=== PATIENT | female | born 1940 | race Caucasian/White ===

== ENCOUNTER 2020-03-24 15:42 | Inpatient (IN) | payer MEDICARE, OTHER ==
[~2020-03-24] VITALS: Ht 160 cm; Wt 74.8 kg
--- NOTE | 2020-03-24 15:42 | NUR ---
PT KAY FROM [facility] FOR GPS ADMISSION. PT IS AAOX2, NOT IN RESPIRATORY DISTRESS, V/S STABLE, KEPT RESTED AND COMFORTABLE, WILL CONTINUE TO MONITOR.
--- NOTE | 2020-03-24 15:54 | NUR ---
SEEN AND EXAMINED BY .
--- NOTE | 2020-03-24 15:58 | NUR ---
ER PHLEB AT BEDSIDE FOR BLOOD DRAW.
[2020-03-24] MEDS ORDERED: BISA10SU61 RC (16:07)
[2020-03-24] MEDS ORDERED: MULT-439 PO (16:07)
[2020-03-24] MEDS ORDERED: SENN-175 PO (16:07)
[2020-03-24] MEDS ORDERED: LOPE-195 PO (16:07)
[2020-03-24] MEDS ORDERED: ZOLP5TAB8 PO (16:07)
[2020-03-24] MEDS ORDERED: LORA-259 PO (16:07)
[2020-03-24] MEDS ORDERED: POTA20TA83 PO (16:07)
[2020-03-24] MEDS ORDERED: ACET-868 PO (16:07)
[2020-03-24] MEDS ORDERED: QUET100T PO (16:07)
[2020-03-24] MEDS ORDERED: QUET50TA PO (16:07)
[2020-03-24] MEDS ORDERED: PANT40TA2 PO (16:07)
[2020-03-24] MEDS ORDERED: ATOR10TA PO (16:07)
[2020-03-24] MEDS ORDERED: APIX5TAB4 PO (16:07)
[2020-03-24] MEDS ORDERED: BUSP5TAB3 PO (16:07)
[2020-03-24] MEDS ORDERED: CRAN425C6 PO (16:07)
[2020-03-24] MEDS ORDERED: VALS40TA12 PO (16:07)
[2020-03-24] MEDS ORDERED: DOCU-141 PO (16:07)
[2020-03-24] MEDS ORDERED: HYDR-4384 PO (16:07)
[2020-03-24] MEDS ORDERED: POLY17PO4 PO (16:07)
[2020-03-24] MEDS ORDERED: ESCI10TA PO (16:07)
[2020-03-24] MEDS ORDERED: [UNRECOGNIZED DRUG - CODE] PO (16:07)
[2020-03-24] MEDS ORDERED: ONDA4TAB5 PO (16:07)
[2020-03-24] MEDS ORDERED: ATEN50TA PO (16:07)
[2020-03-24] MEDS ORDERED: DILT120T8 PO (16:07)
[2020-03-24] MEDS ORDERED: CHOL200025 PO (16:07)
[2020-03-24 16:08] LABS: BASOPHILS % (AUTO) 0.8 % (0.0-2.0); EOSINOPHILS % (AUTO) 2.6 % (0.0-6.0); HEMATOCRIT 42 % (33-45); HEMOGLOBIN 13.4 g/dL (11.5-14.8); LYMPHOCYTES # (AUTO) 1.9 /CMM (0.8-4.8); LYMPHOCYTES % (AUTO) 33.6 % (20.0-44.0); MEAN CORPUSCULAR HGB CONC 32 g/dl (31.0-36.0); MEAN CORPUSCULAR VOLUME 86 fL (82-100); MONOCYTES # (AUTO) 0.4 /CMM (0.1-1.30); MONOCYTES % (AUTO) 7.7 % (2.0-12.0); NEUTROPHILS # (AUTO) 3.1 /CMM (1.8-8.9); NEUTROPHILS % (AUTO) 55.3 % (43.0-81.0); PLATELET COUNT (AUTO) 170 /CMM (150-450); RED BLOOD CELL COUNT(AUTO) 4.89 MIL/uL (4.0-5.2); WHITE BLOOD COUNT (AUTO) 5.5 K/uL (4.3-11.0)
[2020-03-24 16:17] LABS: CALCIUM, SERUM 9.3 mg/dL (8.5-10.1); CARBON DIOXIDE 28 mmol/L (21-32); CHLORIDE 102 mmol/L (98-107); CREATININE 1.2 mg/dL (0.6-1.3); GLUCOSE 100 mg/dL (74-106); POTASSIUM 4.4 mmol/L (3.5-5.1); SODIUM SERUM 138 mmol/L (136-145); UREA NITROGEN, BLOOD 26 mg/dL (7-18)
[2020-03-24 16:23] LABS: ACETAMINOPHEN 3 ug/ml (10-30); ALANINE AMINOTRANSFERASE 16 U/L (12-78); ALBUMIN 3.6 g/dL (3.4-5.0); ALCOHOL, BLOOD < 3 mg/dL (0-0); ALKALINE PHOSPHATASE 75 U/L (46-116); ASPARTATE AMINOTRANSFERASE 19 U/L (15-37); BILIRUBIN,DIRECT 0.1 mg/dL (0.0-0.2); BILIRUBIN,TOTAL 0.3 mg/dL (0.2-1.0); TOTAL PROTEIN, SERUM 7.2 g/dL (6.4-8.2)
[2020-03-24 16:24] LABS: SALICYLATE < 2.8 mg/dL (2.8-20.0)
--- NOTE | 2020-03-24 16:25 | NUR ---
URINE SPECIMEN COLLECTED AND SENT TO LAB.
[2020-03-24 16:37] LABS: APPEARANCE,URINE Clear (CLEAR); BILIRUBIN,URINE Negative (NEGATIVE); BLOOD, URINE Negative Ery/uL (NEGATIVE); COLOR,URINE Yellow (YELLOW); KETONES,URINE Negative (NEGATIVE); LEUKOCYTE ESTERASE ,URINE Negative (NEGATIVE); NITRITE, URINE Negative (NEGATIVE); PH,URINE 5.5 (5.0-8.0); PROTEIN,URINE Negative (NEGATIVE); UGLUCOSE Negative (NEGATIVE); UROBILINOGEN,URINE 0.2 EU/dL (0.2)
--- NOTE | 2020-03-24 18:57 | NUR ---
PINKY ETA 1 HOUR
[2020-03-24] MEDS ORDERED: ATENOLOL 50 MG TABLET PO ONE (20:00)
[2020-03-24] MEDS ORDERED: ATENOLOL 50 MG TABLET ONE (20:08)
--- NOTE | 2020-03-24 20:22 | NUR ---
REPORT GIVEN TO [facility] RN FOR CONTINUATION OF CARE.
--- NOTE | 2020-03-24 20:43 | NUR ---
PT TRANSFERED TO [facility] VIA WHEELCHAIR.
[2020-03-24] MEDS ORDERED: LEVO25TA7 PO (21:16)
[2020-03-24] MEDS ORDERED: MAG HYDROX/AL HYDROX/SIMETH 30 ML UDC PO PRN (21:30)
[2020-03-24] MEDS ORDERED: ACETAMINOPHEN 325 MG TABLET PO PRN (21:30)
[2020-03-24] MEDS ORDERED: LORAZEPAM 0.5 MG TABLET PO PRN (21:30)
[2020-03-24] MEDS ORDERED: ZOLPIDEM TARTRATE 5 MG TABLET PO PRN ×2 (21:30→22:00)
[2020-03-24] MEDS ORDERED: HOME MED MISCELLANEOUS XX SCH (22:00)
[2020-03-24] MEDS ORDERED: BISACODYL SUPP (10 MG) 10 MG/SUPP.RECT SUPP.RECT RC PRN (22:00)
[2020-03-24] MEDS ORDERED: LOPERAMIDE HCL (2 MG CAP) 2 MG CAPSULE PO PRN (22:00)
[2020-03-24] MEDS ORDERED: ONDANSETRON 4 MG TAB.RAPDIS SL PRN (22:00)
[2020-03-24] MEDS ORDERED: HYDROCODONE/APAP 5/325MG 1 EACH TABLET PO PRN (22:00)
[2020-03-24] MEDS ORDERED: BLOOD SUGAR DIAGNOSTIC 1 EACH STRIP IN ONE (22:00)
[2020-03-24] MEDS: ATORVASTATIN 10 MG TABLET PO SCH (22:47)
--- NOTE | 2020-03-24 22:49 | NUR ---
GPS RN NOTES PT REFUSED ACCU-CHEK.
[2020-03-24 23:15] VITALS: BP 145/87
[2020-03-24 23:35] VITALS: BP 160/74
[2020-03-25 00:10] LABS: APPEARANCE,URINE CLEAR (CLEAR); BILIRUBIN,URINE NEGATIVE (NEGATIVE); BLOOD, URINE NEGATIVE Ery/uL (NEGATIVE); COLOR,URINE OTHER (YELLOW); KETONES,URINE NEGATIVE (NEGATIVE); LEUKOCYTE ESTERASE ,URINE NEGATIVE (NEGATIVE); NITRITE, URINE NEGATIVE (NEGATIVE); PROTEIN,URINE NEGATIVE (NEGATIVE); UGLUCOSE NEGATIVE (NEGATIVE); UROBILINOGEN,URINE 0.2 EU/dL (0.2)
--- NOTE | 2020-03-25 01:40 | NUR ---
GPS ELECTRONIC PARTS SALESPERSON NOTES: RECEIVED FROM ER ORIGINALLY FROM [facility]. PT ARRIVED UNIT AT 2145 VIA HOSPITAL BED/STRETCHER WITH AN ER STAFF. PT IS ADMITTED ON 5150 HOLD [address]ACED 03/24/2020 @ 98478 FOR DTS/DTO. PER HOLD PT EVALUATION WAS REQUESTED BY [facility] D/T AGGRESSIVE BEHAVIOR TOWARDS STAFF AND HITTING HERSELF ON THE HEAD AND CHEST WITH A BED GAYTAN, THROWING THINGS AT STAFF AND ACCUSING STAFF OF POISONING HER AND TRYING TO GET RID OF HER. UPON FACE TO FACE ASSESSMENT PT WAS A/O X2, APPEARS DEPRESSED, HOSTILE, AGGRESSIVE, COMBATIVE, UNCOOPERATIVE, CURSING, RESTLESS, SUSPICIOUS, PARANOID, CALLING STAFF EVIL AND LYING. REFUSED TO CHANGE TO GPS GOWN, THROWING GOWN ON THE FLOOR. DISORGANIZED, LOOSE ASSOCIATIONS, FLIGHT OF IDEAS. PT IS DISPLAYING NO S/S OF OF APPARENT DISTRESS. RESPIRATION EVEN AND UNLABORED WITH EQUAL RISE AND FALL OF THE CHEST, ON ROOM AIR WITH SPO2 OF 98%. PT REFUSED TO SIGN ALL ADMISSION PAPERS, REFUSED SKIN ASSESSMENT, REFUSED MRSA AND ACCU-CHEK. PT HAS UNSTEADY GAIT AND IS HIGH FALL RISK. PT ASKED FOR SLEEP MEDICATION AND AMBIEN 5MG 1 TAB GIVEN PO ORDERED. PT HAS NO NEEDS AT THIS TIME. PT IS UNDER THE PSYCHIATRIC CARE OF DR TAYLOR, AND MEDICAL CARE OF MIRNA. PT IS ON MECHANICAL SOFT DIET D/T DYSPHAGIA.PT HAS NO BELONGINGS. PT REFUSED ORIENTATION TO UNIT. DIET, OT, PT AND SOCIAL CONSULT ORDERED. PT BED ALARM IS ON, SIDE RAILS ARE UP X2 FOR SAFETY, BED IN LOW LOCKED POSITION. CARE PLAN INITIATED, WILL CONTINUE TO MONITOR Q15 AND Q1HR FOR SAFETY, MOOD AND BEHAVIOR.
--- NOTE | 2020-03-25 03:33 | NUR ---
GPS RN NOTES: SKIN ASSESSMENT DONE, PICTURES TAKEN AND PLACED IN CHART
[2020-03-25] MEDS: HYDROCODONE/APAP 5/325MG 1 EACH TABLET PO PRN (04:38)
--- NOTE | 2020-03-25 04:39 | NUR ---
GPS-RN NOTE: C/O NECK PAIN PATIENT C/O OF NECK PAIN ON A PAIN SCALE OF 7/10. ADMINISTERED NORCO 5/325MG 1 TAB PO ORDERED. WILL CONTINUE TO MONITOR FOR THE EFFECTIVENESS OF MEDICATION.
[2020-03-25 08:00] VITALS: BP 164/84
[2020-03-25] MEDS: DOCUSATE SODIUM 100 MG CAPSULE PO SCH ×2 (08:14→16:49)
[2020-03-25] MEDS: LEVOTHYROXINE SODIUM 25 MCG TABLET PO SCH (08:15)
[2020-03-25] MEDS: ATENOLOL 50 MG TABLET PO SCH ×2 (08:15→16:50)
[2020-03-25] MEDS: MULTIVITAMINS,THERAGRAN 1 UDTAB TABLET PO SCH (08:15)
[2020-03-25] MEDS: PANTOPRAZOLE 40 MG TABLET.DR PO SCH (08:15)
[2020-03-25] MEDS: CHOLECALCIFEROL 1,000 UNIT TABLET (VIT D3) PO SCH (08:15)
[2020-03-25] MEDS: VALSARTAN 40 MG TABLET PO SCH (08:15)
[2020-03-25] MEDS: DILTIAZEM HCL CD 120 MG PO SCH (08:16)
[2020-03-25] MEDS: APIXABAN 5 MG TABLET PO SCH ×2 (08:18→16:52)
[2020-03-25] MEDS ORDERED: LORAZEPAM 1 MG TABLET PO PRN (09:00)
[2020-03-25] MEDS ORDERED: POTASSIUM CHLORIDE 20 MEQ TAB.PRT.SR PO SCH (09:00)
[2020-03-25] MEDS: GABAPENTIN 100 MG CAPSULE PO SCH ×3 (10:14→16:49)
[2020-03-25] MEDS: DULOXETINE HCL 30 MG CAPSULE.DR PO SCH (10:14)
[2020-03-25] MEDS: OXYBUTYNIN CHLORIDE 5 MG TABLET PO SCH ×2 (10:14→16:49)
[2020-03-25] MEDS: hydrOXYzine PAMOATE 25 MG CAPSULE PO PRN (10:14)
--- NOTE | 2020-03-25 10:22 | NUR ---
GPS/RN-NOTES NOTED PATIENT IRRITABLE ,ANGRY ON APPROACH,ARGUMENTATIVE AND DEMANDING BEHAVIOR. .REDIRECTED AND REASSURED PATIENT AND OFFERED VISTARIL 25MG P.O PRN ORDER. WILL CONT. MONITORING FOR SAFETY AND BEHAVIOR.
--- NOTE | 2020-03-25 11:22 | NUR ---
Person to Notify Contact: DIVINE called the pts caregiver, Loly ([phone]), who stated that she was taking care of the pt a while ago but is no longer caring for her. She stated that she is the only person involved in the pts life and that her own children refuse to be involved. She stated that she spoke to [facility] and they are recommending that the pt be transferred to a more psych facility. DIVINE stated that she will follow up with the facility.
--- NOTE | 2020-03-25 11:24 | NUR ---
Facility Contact: SW called [facility] and spoke to Maddie who stated that the pt was accepted to [facility] in [place]. She stated that they would prefer if the pt was transferred there. She stated that she will call the SW back after a meeting to discuss this further.
--- NOTE | 2020-03-25 11:30 | NUR ---
GPS/RN-NOTES PATIENT SITTING IN BED GUARDED,CALM AT THIS TIME.NO ACUTE DISTRESS NOTED.
--- NOTE | 2020-03-25 11:32 | NUR ---
Group Note: SW encouraged pt to participate in group on the topic of dealing with anxiety. Patient was agitated and yelling "I want my clothes! Give me my stuff!".
--- NOTE | 2020-03-25 12:20 | NUR ---
RT Pt refused to have EKG performed. RN informed
[2020-03-25 12:39] LABS: ALBUMIN 4.2 g/dL (3.4-5.0); BILIRUBIN,TOTAL 0.8 mg/dL (0.2-1.0); CALCIUM, SERUM 9.3 mg/dL (8.5-10.1); CREATININE 0.7 mg/dL (0.6-1.3); POTASSIUM 4.1 mmol/L (3.5-5.1); TOTAL PROTEIN, SERUM 8.1 g/dL (6.4-8.2)
[2020-03-25] MEDS: MAGNESIUM HYDROXIDE 30 ML UDC PO PRN ×2 (12:45→23:59)
--- NOTE | 2020-03-25 12:49 | NUR ---
GPS/RN-NOTES PATIENT C/O CONSTIPATION FOR 2 DAYS. MOM 30ML GIVEN PRN ORDER. WILL CONT. MONITORING FOR EFFECTIVENESS.
[2020-03-25 12:51] LABS: CHOLESTEROL 162 mg/dL (<200); HDL CHOLESTEROL 69 mg/dL (40-60); LDL 79 mg/dL (0-99); TRIGLYCERIDES 93 mg/dL (30-150)
--- NOTE | 2020-03-25 12:52 | NUR ---
Initial Discharge Plan: Pt currently resides at [facility] located at [address] [place] [address]; ([phone]). When speaking to the interstate planner, Maddie, she stated that the pt was accepted to an alternative SNF. Per pt, she would like to return to her original SNF. DIVINE will work with the pt and the MD regarding appropriate discharge planning. SW will form a safe and proper discharge.
[2020-03-25 16:00] VITALS: BP 148/97
--- NOTE | 2020-03-25 19:14 | NUR ---
GPS/RN-NOTES PATIENT REPORTED HAD X1 LARGE BM TODAY. MOM WAS EFFECTIVE. WILL ENDORSE TO INCOMING NURSE FOR BEHAVIORAL AND SAFETY MONITORING AND CONTINUITY OF CARE.
[2020-03-25 19:36] VITALS: BP 142/78
[2020-03-25] MEDS: QUETIAPINE FUMARATE 100 MG TABLET PO SCH (21:34)
[2020-03-25] MEDS: ATORVASTATIN 10 MG TABLET PO SCH (21:34)
--- NOTE | 2020-03-25 21:50 | NUR ---
GPS RN NOTE: PT HAS A COMPLIANT OF RIGHT SHOULDER PAIN REQUESTING NORCO AT THIS TIME. PT V/ STABLE. GAVE NORCO 5/325 1 TAB Q6 HOURS PO PRN ORDERED. REASSESS FOR PAIN AND WILL CONTINUE TO MONITOR PT.
--- NOTE | 2020-03-25 21:54 | NUR ---
GPS RN NOTE, PATIENT HAS A COMPLAINT OF NOT BEING ABLE TO SLEEP AT NIGHT AND IS REQUESTING AMBIEN AT THIS TIME. PAGED DR TAYLOR AND INFORMED HIM OF MY FINDINGS. DR TAYLOR ORDERED TO GIVEN AMBIEN 5 MG PO HS PRN FOR SLEEP AND SAID HE WILL TALK TO THIS PATIENT IN THE A.M. ALL ORDERS NOTED AND CARRIED OUT WILL CONTINUE TO MONITOR THIS PATIENT WITH THE HELP OF STAFF.
--- NOTE | 2020-03-25 23:59 | NUR ---
GPS RN NOTE, PATIENT HAS A COMPLAINT OF FEELING CONSTIPATED AND IS REQUESTING MILK OF MAGNESIA AT THIS TIME. PATIENT VITAL SIGNS ARE STABLE. GAVE MILK OF MAGNESIA 30 ML PO Q12HR PRN ORDERED. WILL REASSESS AND I WILL CONTINUE TO MONITOR THIS PATIENT WITH THE HELP OF STAFF.
[2020-03-26] MEDS: HYDROCODONE/APAP 5/325MG 1 EACH TABLET PO PRN (06:56)
[2020-03-26] MEDS: LEVOTHYROXINE SODIUM 25 MCG TABLET PO SCH (06:59)
[2020-03-26 08:00] VITALS: BP 162/94
[2020-03-26] MEDS: PANTOPRAZOLE 40 MG TABLET.DR PO SCH (08:25)
[2020-03-26] MEDS: VALSARTAN 40 MG TABLET PO SCH (08:27)
[2020-03-26] MEDS: OXYBUTYNIN CHLORIDE 5 MG TABLET PO SCH ×2 (08:27→16:14)
[2020-03-26] MEDS: GABAPENTIN 100 MG CAPSULE PO SCH ×3 (08:27→16:14)
[2020-03-26] MEDS: DOCUSATE SODIUM 100 MG CAPSULE PO SCH ×2 (08:27→16:14)
[2020-03-26] MEDS: ATENOLOL 50 MG TABLET PO SCH ×2 (08:27→16:15)
[2020-03-26] MEDS: DULOXETINE HCL 30 MG CAPSULE.DR PO SCH (08:27)
[2020-03-26] MEDS: CHOLECALCIFEROL 1,000 UNIT TABLET (VIT D3) PO SCH (08:28)
[2020-03-26] MEDS: DILTIAZEM HCL CD 120 MG PO SCH (08:28)
[2020-03-26] MEDS: MULTIVITAMINS,THERAGRAN 1 UDTAB TABLET PO SCH (08:28)
[2020-03-26] MEDS: APIXABAN 5 MG TABLET PO SCH ×2 (08:29→16:53)
[2020-03-26] MEDS: POTASSIUM CHLORIDE 20 MEQ POWDER PACKET PO SCH (08:35)
[2020-03-26 16:00] VITALS: BP 153/98
[2020-03-26] MEDS: hydrOXYzine PAMOATE 25 MG CAPSULE PO PRN (20:07)
[2020-03-26 20:18] VITALS: BP 163/99
[2020-03-26] MEDS: QUETIAPINE FUMARATE 100 MG TABLET PO SCH (21:07)
[2020-03-26] MEDS: ATORVASTATIN 10 MG TABLET PO SCH (21:07)
[2020-03-27] MEDS: LEVOTHYROXINE SODIUM 25 MCG TABLET PO SCH (05:54)
[2020-03-27] MEDS: HYDROCODONE/APAP 5/325MG 1 EACH TABLET PO PRN ×2 (05:54→20:23)
[2020-03-27] MEDS: PANTOPRAZOLE 40 MG TABLET.DR PO SCH (07:59)
[2020-03-27] MEDS: DILTIAZEM HCL CD 120 MG PO SCH (08:05)
[2020-03-27] MEDS: DOCUSATE SODIUM 100 MG CAPSULE PO SCH ×2 (08:05→17:11)
[2020-03-27] MEDS: MULTIVITAMINS,THERAGRAN 1 UDTAB TABLET PO SCH (08:05)
[2020-03-27] MEDS: POTASSIUM CHLORIDE 20 MEQ POWDER PACKET PO SCH (08:05)
[2020-03-27] MEDS: GABAPENTIN 100 MG CAPSULE PO SCH ×3 (08:05→17:11)
[2020-03-27] MEDS: OXYBUTYNIN CHLORIDE 5 MG TABLET PO SCH ×2 (08:06→17:11)
[2020-03-27] MEDS: VALSARTAN 40 MG TABLET PO SCH (08:06)
[2020-03-27] MEDS: DULOXETINE HCL 30 MG CAPSULE.DR PO SCH (08:06)
[2020-03-27] MEDS: CHOLECALCIFEROL 1,000 UNIT TABLET (VIT D3) PO SCH (08:06)
[2020-03-27] MEDS: APIXABAN 5 MG TABLET PO SCH ×2 (08:09→17:13)
[2020-03-27] MEDS: ATENOLOL 50 MG TABLET PO SCH ×2 (08:14→17:12)
[2020-03-27 08:30] VITALS: BP 110/69
--- NOTE | 2020-03-27 11:34 | NUR ---
GPS/RN-NOTES PER DR. TAYLOR ,PATIENT REPORTED TO HIM THAT SHE HAD BLOOD ON HER STOOL EARLIER. ALMOND PASTE MOLDER WENT AND VERIFIED WITH THE PATIENT, PATIENT STATED" I WENT # 2 EARLIER AND HAD BLOOD ON MY STOOL". DR. SALAS MADE AWARE WITH T.O ORDER OF CBC STAT AND STOOL COLLECTION FOR OB. NOTED AND CARRIED OUT.INSTRUCTED PATIENT TO NOTIFY THE ALMOND PASTE MOLDER WHEN GOING TO THE BATHROOM AGAIN SO TO COLLECT A STOOL SAMPLE PER MD ORDER. PATIENT VERBALIZED UNDERSTANDING.
[2020-03-27 12:04] LABS: BASOPHILS % (AUTO) 0.7 % (0.0-2.0); EOSINOPHILS % (AUTO) 1.4 % (0.0-6.0); HEMATOCRIT 44 % (33-45); HEMOGLOBIN 14.5 g/dL (11.5-14.8); LYMPHOCYTES # (AUTO) 1.4 /CMM (0.8-4.8); LYMPHOCYTES % (AUTO) 22.6 % (20.0-44.0); MEAN CORPUSCULAR HGB CONC 33 g/dl (31.0-36.0); MEAN CORPUSCULAR VOLUME 84 fL (82-100); MONOCYTES # (AUTO) 0.5 /CMM (0.1-1.30); MONOCYTES % (AUTO) 8.3 % (2.0-12.0); NEUTROPHILS # (AUTO) 4.2 /CMM (1.8-8.9); PLATELET COUNT (AUTO) 192 /CMM (150-450); RED BLOOD CELL COUNT(AUTO) 5.26 MIL/uL (4.0-5.2); WHITE BLOOD COUNT (AUTO) 6.3 K/uL (4.3-11.0)
[2020-03-27 16:00] VITALS: BP 160/77
--- NOTE | 2020-03-27 16:14 | NUR ---
GPS/RN-NOTES DR. SALAS MADE AWARE OF THE CBC RESULTS. PER MD WILL CONT. ELIQUIS BID ,PATIENT IS NOT ACTIVELY BLEEDING.
--- NOTE | 2020-03-27 18:47 | NUR ---
GPS/RN-NOTES 14 DAY HOLD COPY WAS REVIEWED TO THE PATIENT, PATIENT REFUSED TO TAKE THE COPY SHE GETS ANGRY AND ARGUMENTATIVE. STATED" I 'M DON'T WANT TO STAY HERE ,YOU JUST TAKING MY MONEY". LET ME GO BACK TO MY PLACE. REASSURED AND REDIRECTED PATIENT.
--- NOTE | 2020-03-27 18:56 | NUR ---
GPS/RN-NOTES PATIENT SITTING IN BED AWAKE,ALERT ,CALM,GUARDED NO ACUTE DISTRESS NOTED. NO STOOL COLLECTED TODAY DUE TO NO BM AFTER THIS MORNING. PATIENT AWARE OF THE NEED STOOL SPECIMEN.PATIENT ABLE TO AMBULATE TO THE BATHROOM USING WALKER. WILL ENDORSE TO INCOMING NURSE FOR COLLECTION AND CONTINUITY OF CARE.
[2020-03-27 19:50] VITALS: BP 162/91
[2020-03-27 20:00] VITALS: BP 162/91
--- NOTE | 2020-03-27 20:26 | NUR ---
GPS RN NOTE: PAIN PATIENT C/O LEFT SHOULDER PAIN 01/28 & ONLY WANTED TO TAKE NORCO AT THIS TIME. PRN NORCO GIVEN ORDERED. WILL CONTINUE TO MONITOR FOR ANY CHANGES.
--- NOTE | 2020-03-27 20:30 | NUR ---
GPS/RN-NOTES 14 DAY HOLD COPY WAS GIVEN AGAIN TO THE PATIENT, PATIENT REFUSED TO TAKE THE COPY SHE GETS ANGRY AND ARGUMENTATIVE & THREW THE FORMS ON THE FLOOR. STATED" THIS IS ALL A LIE, YOU ALL ARE JUST TAKING MY MONEY". LET ME GO BACK. REASSURED AND REDIRECTED PATIENT.
--- NOTE | 2020-03-27 20:50 | NUR ---
GPS RN NOTE: AGITATION PATIENT WALKED OUT OF HER ROOM WITH HER WALKER, VERY DEMANDING, HYPERVERBAL USING BAD WORDS TOWARDS STAFF & SHE WALKED BACK TO HER ROOM SHE THREW HER WALKER ON THE FLOOR, CHARGE NURSE & RN REDIRECTED THE PATIENT, SHE WAS AGITATED FOR A WHILE BUT THEN DID CALM DOWN. PATIENT IS FORGETFUL & EASILY AGITATED. KEEPS ASKING SAME QUESTIONS OVER & OVER. WILL CONTINUE TO REDIRECT THE PATIENT & WILL MONITOR CLOSELY FOR ANY CHANGES.
[2020-03-27 21:15] VITALS: BP 142/86
[2020-03-27] MEDS: QUETIAPINE FUMARATE 100 MG TABLET PO SCH (21:23)
[2020-03-27] MEDS: ATORVASTATIN 10 MG TABLET PO SCH (21:23)
[2020-03-27] MEDS: ZOLPIDEM TARTRATE 5 MG TABLET PO PRN (22:32)
--- NOTE | 2020-03-27 22:35 | NUR ---
GPS RN NOTE: INSOMNIA PATIENT STATED SHE WAS UNABLE TO SLEEP & REQUESTED TO GET AMBIEN AT THIS TIME. PRN AMBIEN 5 MG 1 TAB PO GIVEN ORDERED. WILL CONTINUE TO MONITOR FOR EFFECTIVENESS.
[2020-03-28] MEDS: LEVOTHYROXINE SODIUM 25 MCG TABLET PO SCH (06:24)
--- NOTE | 2020-03-28 06:34 | NUR ---
GPS RN NOTE PATIENT SLEPT WELL AFTER TAKING AMBIEN, WOKE UP, KEEP ASKING SAME QUESTIONS ABOUT MEDICATIONS OVER & OVER, ARGUMENTATIVE, VERY NEEDY, DEMANDING SAYING," WHY CAN'T YOU CLEAN MY BODY THE WAY YOU CLEANED OTHER PATIENT IN MY ROOM ?" PATIENT IS AMBULATORY WITH WALKER, STEADY ON HER OWN PACE, ABLE TO HELP WITH HER ADL CARE BUT WANTS TO BE DEPENDENT FOR ADL CARE. EXPLAINED TO THE PATIENT THAT IT IS GOOD TO BE INDEPENDENT BUT PATIENT STARTS ARGUING, GETS ANXIOUS/RESTLESS & REPEATING SAME STATEMENT OVER & OVER. GAVE HER SOME SPACE TO RELAX & CALM DOWN. CONTINUING TO MONITOR FOR SAFETY, MOOD & BEHAVIOR.
[2020-03-28] MEDS: PANTOPRAZOLE 40 MG TABLET.DR PO SCH (06:39)
--- NOTE | 2020-03-28 06:40 | NUR ---
GPS RN NOTE PATIENT WANTED HER PROTONIX RIGHT AWAY. PROTONIX GIVEN ORDERED.
[2020-03-28 08:00] VITALS: BP_SYST 133; BP_SYST 135; BP_DIAS 64; BP_DIAS 78
--- NOTE | 2020-03-28 08:17 | NUR ---
Dr. Villa in the unit and ordered Anusol cream BID prn.
[2020-03-28] MEDS ORDERED: HYDROCORTISONE CR 30 GM TUBE RC PRN (08:20)
[2020-03-28] MEDS: GABAPENTIN 100 MG CAPSULE PO SCH ×3 (08:21→16:21)
[2020-03-28] MEDS: MULTIVITAMINS,THERAGRAN 1 UDTAB TABLET PO SCH (08:21)
[2020-03-28] MEDS: DULOXETINE HCL 30 MG CAPSULE.DR PO SCH (08:21)
[2020-03-28] MEDS: VALSARTAN 40 MG TABLET PO SCH (08:21)
[2020-03-28] MEDS: DOCUSATE SODIUM 100 MG CAPSULE PO SCH ×2 (08:22→16:21)
[2020-03-28] MEDS: OXYBUTYNIN CHLORIDE 5 MG TABLET PO SCH ×2 (08:22→16:21)
[2020-03-28] MEDS: CHOLECALCIFEROL 1,000 UNIT TABLET (VIT D3) PO SCH (08:22)
[2020-03-28] MEDS: POTASSIUM CHLORIDE 20 MEQ POWDER PACKET PO SCH (08:22)
[2020-03-28] MEDS: DILTIAZEM HCL CD 120 MG PO SCH (08:25)
[2020-03-28] MEDS: APIXABAN 5 MG TABLET PO SCH ×2 (08:26→16:22)
[2020-03-28] MEDS: ATENOLOL 50 MG TABLET PO SCH ×2 (08:32→16:21)
[2020-03-28 10:50] VITALS: BP 151/96
[2020-03-28] MEDS: HYDROCODONE/APAP 5/325MG 1 EACH TABLET PO PRN ×2 (10:53→19:16)
--- NOTE | 2020-03-28 12:10 | NUR ---
Pt. refused for labs.
[2020-03-28 16:00] VITALS: BP 135/86
[2020-03-28 18:44] LABS: APPEARANCE,URINE CLEAR (CLEAR); BILIRUBIN,URINE NEGATIVE (NEGATIVE); BLOOD, URINE NEGATIVE Ery/uL (NEGATIVE); COLOR,URINE YELLOW (YELLOW); KETONES,URINE NEGATIVE (NEGATIVE); LEUKOCYTE ESTERASE ,URINE TRACE (NEGATIVE); NITRITE, URINE NEGATIVE (NEGATIVE); PROTEIN,URINE NEGATIVE (NEGATIVE); UGLUCOSE NEGATIVE (NEGATIVE); UROBILINOGEN,URINE 0.2 EU/dL (0.2)
[2020-03-28 18:51] LABS: BACTERIA,URINE Rare /HPF (None Seen); RBC,URINE 0-2 /HPF (0-2); SQUAMOUS EPITHELIAL CELL,UR 0-2 /HPF (None Seen)
[2020-03-28 18:52] LABS: MUCUS,URINE Rare /LPF (None Seen)
--- NOTE | 2020-03-28 19:19 | NUR ---
GPS RN NOTE: PAIN PATIENT C/O LEFT SHOULDER PAIN 01/28, REQUESTED TO TAKE NORCO, PRN NORCO 5/325 MG 1 TAB PO GIVEN. WILL REASSESS FOR EFFECTIVENESS.
[2020-03-28 20:00] VITALS: BP 115/71
--- NOTE | 2020-03-28 20:30 | NUR ---
GPS RN NOTE: AGITATION PATIENT IS VERY DEMANDING, WANTS THINGS TO BE DONE RIGHT AWAY, EASILY AGITATED/IRRITABLE, COMPLAINING ABOUT OTHER PATIENT BEING TALKING TO HERSELF & PATIENT STATED, " I DON'T FEEL GOOD WHEN OTHER PATIENT TALKING TO HERSELF, I WANT TO GO HOME." PATIENT IS HYPERVERBAL, ARGUMENTATIVE TOWARDS STAFF & HER ROOM MATE, INSISTING ON THINGS TO BE DONE RIGHT AWAY, WANTS TO GO TO ANOTHER ROOM. PATIENT WAS REDIRECTED, REASSURED TO LOOK FOR ANOTHER ROOM AVAILABILITY, SET LIMITS WITH THE PATIENT BEHAVIOR. PATIENT WAS THEN MOVED TO ROOM 215-1 SAFELY. WILL CONTINUE TO MONITOR FOR ANY CHANGES.
[2020-03-28 20:33] VITALS: BP 115/72
--- NOTE | 2020-03-28 21:24 | NUR ---
GPS RN NOTE UA RESULTED BUT URINE CULTURE IS PENDING YET. AARTI BRADLEY MADE AWARE ABOUT THE UA REPORT & AARTI ASKED TO WAIT FOR URINE CULTURE RESULTS TO RULE OUT ANY DIAGNOSIS. PATIENT IS FORGETFUL & CONFUSED, EASILY AGITATED, REDIRECTABLE AT THIS TIME. WILL CONTINUE TO MONITOR FOR ANY CHANGES.
[2020-03-28] MEDS: QUETIAPINE FUMARATE 100 MG TABLET PO SCH (21:37)
[2020-03-28] MEDS: ATORVASTATIN 10 MG TABLET PO SCH (21:37)
[2020-03-28] MEDS: ZOLPIDEM TARTRATE 5 MG TABLET PO PRN (23:52)
--- NOTE | 2020-03-28 23:53 | NUR ---
GPS RN NOTE: INSOMNIA PATIENT STATED SHE IS UNABLE TO SLEEP & REQUESTED TO GET AMBIEN. PRN AMBIEN 5 MG 1 TAB PO GIVEN ORDERED. WILL MONITOR FOR EFFECTIVENESS.
--- NOTE | 2020-03-29 03:06 | NUR ---
GPS RN NOTE PATIENT IS SLEEPING AT THIS TIME. CALM & RELAXED.
[2020-03-29] MEDS: LEVOTHYROXINE SODIUM 25 MCG TABLET PO SCH (07:00)
--- NOTE | 2020-03-29 07:18 | NUR ---
GPS RN NOTE SYNTHROID & PANTOPRAZOLE WAS TAKEN OUT OF OMNICELL BUT PATIENT REFUSED TO TAKE BOTH MEDICINES, STATED, " I DON'T NEED IT, I DON'T TAKE THESE MEDS AT ALL." REMINDED THE PATIENT THAT SHE ASKED FOR THESE 2 MEDICINES ON HER OWN YESTERDAY SAYING THAT SHE HAS BEEN TAKING THESE MEDS FOR A LONG TIME & MEDS WERE GIVEN YESTERDAY. DESPITE OF EXPLANATIONS, PT. STRONGLY KEEP REPEATING THE SAME REASON OVER & OVER & REFUSED TO TAKE SYNTHROID & PANTOPRAZOLE. MEDS WERE RETURNED TO THE OMNICELL. CHARGE NURSE MADE AWARE.
[2020-03-29] MEDS: PANTOPRAZOLE 40 MG TABLET.DR PO SCH (07:30)
[2020-03-29 08:00] VITALS: BP 158/79
[2020-03-29] MEDS: ATENOLOL 50 MG TABLET PO SCH ×2 (08:07→16:22)
[2020-03-29] MEDS: VALSARTAN 40 MG TABLET PO SCH (08:08)
[2020-03-29] MEDS: DOCUSATE SODIUM 100 MG CAPSULE PO SCH ×2 (08:08→16:20)
[2020-03-29] MEDS: CHOLECALCIFEROL 1,000 UNIT TABLET (VIT D3) PO SCH (08:09)
[2020-03-29] MEDS: OXYBUTYNIN CHLORIDE 5 MG TABLET PO SCH ×2 (08:09→16:21)
[2020-03-29] MEDS: HYDROCODONE/APAP 5/325MG 1 EACH TABLET PO PRN ×2 (08:10→16:22)
[2020-03-29] MEDS: POTASSIUM CHLORIDE 20 MEQ POWDER PACKET PO SCH (08:12)
[2020-03-29] MEDS: DULOXETINE HCL 30 MG CAPSULE.DR PO SCH (08:12)
[2020-03-29] MEDS: GABAPENTIN 100 MG CAPSULE PO SCH ×3 (08:21→16:21)
[2020-03-29] MEDS: DILTIAZEM HCL CD 120 MG PO SCH (08:21)
[2020-03-29] MEDS: APIXABAN 5 MG TABLET PO SCH ×2 (08:21→16:43)
[2020-03-29] MEDS: MULTIVITAMINS,THERAGRAN 1 UDTAB TABLET PO SCH (08:22)
[2020-03-29 15:53] VITALS: BP 154/87
[2020-03-29 15:56] LABS: BASOPHILS % (AUTO) 0.8 % (0.0-2.0); EOSINOPHILS % (AUTO) 2.8 % (0.0-6.0); HEMATOCRIT 43 % (33-45); HEMOGLOBIN 14.1 g/dL (11.5-14.8); LYMPHOCYTES # (AUTO) 1.3 /CMM (0.8-4.8); MEAN CORPUSCULAR HGB CONC 33 g/dl (31.0-36.0); MEAN CORPUSCULAR VOLUME 84 fL (82-100); MONOCYTES # (AUTO) 0.6 /CMM (0.1-1.30); MONOCYTES % (AUTO) 10.8 % (2.0-12.0); NEUTROPHILS # (AUTO) 3.1 /CMM (1.8-8.9); NEUTROPHILS % (AUTO) 60.6 % (43.0-81.0); PLATELET COUNT (AUTO) 183 /CMM (150-450); RED BLOOD CELL COUNT(AUTO) 5.14 MIL/uL (4.0-5.2); WHITE BLOOD COUNT (AUTO) 5.2 K/uL (4.3-11.0)
[2020-03-29 16:23] LABS: ALBUMIN 3.7 g/dL (3.4-5.0); BILIRUBIN,TOTAL 0.5 mg/dL (0.2-1.0); CALCIUM, SERUM 9.4 mg/dL (8.5-10.1); CREATININE 0.8 mg/dL (0.6-1.3); POTASSIUM 4.7 mmol/L (3.5-5.1); TOTAL PROTEIN, SERUM 7.5 g/dL (6.4-8.2)
[2020-03-29 20:00] VITALS: BP 128/72
[2020-03-29] MEDS: ATORVASTATIN 10 MG TABLET PO SCH (21:25)
[2020-03-29] MEDS: QUETIAPINE FUMARATE 100 MG TABLET PO SCH (21:25)
--- NOTE | 2020-03-29 21:53 | NUR ---
RN NOTES: PT.REFUSED WEEKLY SKIN REASSEMENT AND PICTURES, ENCOURAGED X3 EXPLINED RISKS AND BENEFITS STRONGLY REFUSED, PER PT. MY SKIN IS OK. WILL CONTINUITY WITH CARE.
--- NOTE | 2020-03-29 22:01 | NUR ---
RN NOTES: PT.REFUSED WEEKLY SKIN REASSEMENT AND PICTURES, ENCOURAGED X3 EXPLINED RISKS AND BENEFITS STRONGLY REFUSED, PER PT. MY SKIN IS OK. PT. BEHAVIOR UNCOOPERTIVE , AGGRESSIVE, DISORGNIZED , WILL CONTINUITY WITH CARE.
[2020-03-29] MEDS: ZOLPIDEM TARTRATE 5 MG TABLET PO PRN (22:27)
--- NOTE | 2020-03-29 22:28 | NUR ---
GPS RN NOTE: INSOMNIA PATIENT C/O UNABLE TO SLEEP & REQUESTED TO GET AMBIEN. PRN AMBIEN 5 MG PO GIVEN ORDERED. WILL MONITOR FOR EFFECTIVENESS.
[2020-03-30] MEDS: HYDROCODONE/APAP 5/325MG 1 EACH TABLET PO PRN ×3 (05:59→16:25)
--- NOTE | 2020-03-30 06:00 | NUR ---
GPS RN NOTE: PAIN PATIENT C/O LEFT SHOULDER PAIN 01/28, REQUESTED TO TAKE NORCO, PRN NORCO 5/325 MG 1 TAB PO GIVEN. WILL REASSESS FOR EFFECTIVENESS.
[2020-03-30] MEDS: LEVOTHYROXINE SODIUM 25 MCG TABLET PO SCH (07:00)
--- NOTE | 2020-03-30 07:03 | NUR ---
GPS RN OPENING NOTES RECEIVED PT.RESTING IN HER ROOM, AWAKE, ALERT AND ORIENTED ,ANXIOUS CONFUSED, FORGETFUL, BLUNTED AFFECT, PARANOID,AGITATED, EASILY IRRITABLE, THOUGHT PROCESS DISORGANIZED,MANIPULATIVE,ARGUMENTATIVE, DEMANDING, NEEDY, DISORIENTED, LOOSE ASSOCIATIONS, NO S/S OF DISTRESS. ENVIRONMENTAL SAFETY CHECKS DONE.BED IN LOW LOCKED POSITION , CALL BRYAN WITHIN REACH. SAFETY MAINTAIN AT ALL TIMES. BED IN LOWEST LOCKED POSITION, SIDE RAILS UPX2, CALL LIGHT WITHIN REACH. WILL CONTINUE TO MONITOR Q15M, PRN AND PER PROTOCOL FOR SAFETY AND BEHAVIOR.
[2020-03-30] MEDS: PANTOPRAZOLE 40 MG TABLET.DR PO SCH (07:24)
--- NOTE | 2020-03-30 07:26 | NUR ---
GPS RN NOTE: REFUSED MEDS PT. REFUSED SYNTHROID & PANTOPRAZOLE WAS TAKEN OUT OF OMNICELL BUT PATIENT REFUSED TO TAKE BOTH MEDICINES, STATED, " I DON'T NEED IT, I DON'T TAKE THESE MEDS AT ALL." PT. STRONGLY KEEP REPEATING THE SAME REASON OVER & OVER & REFUSED TO TAKE SYNTHROID & PANTOPRAZOLE. MEDS WERE RETURNED TO THE OMNICELL. CHARGE NURSE MADE AWARE.
[2020-03-30 08:00] VITALS: BP 163/85
[2020-03-30] MEDS: GABAPENTIN 100 MG CAPSULE PO SCH ×3 (09:53→17:14)
[2020-03-30] MEDS: OXYBUTYNIN CHLORIDE 5 MG TABLET PO SCH ×2 (09:53→16:18)
[2020-03-30] MEDS: DILTIAZEM HCL CD 120 MG PO SCH (09:55)
[2020-03-30] MEDS: DOCUSATE SODIUM 100 MG CAPSULE PO SCH ×2 (09:55→16:18)
[2020-03-30] MEDS: VALSARTAN 40 MG TABLET PO SCH (09:56)
[2020-03-30] MEDS: DULOXETINE HCL 30 MG CAPSULE.DR PO SCH (09:56)
[2020-03-30] MEDS: CHOLECALCIFEROL 1,000 UNIT TABLET (VIT D3) PO SCH (09:57)
[2020-03-30] MEDS: ATENOLOL 50 MG TABLET PO SCH ×2 (09:58→16:19)
[2020-03-30] MEDS: POTASSIUM CHLORIDE 20 MEQ POWDER PACKET PO SCH (09:58)
[2020-03-30] MEDS: ACETAMINOPHEN 325 MG TABLET PO PRN (09:58)
--- NOTE | 2020-03-30 10:00 | NUR ---
PATIENT COMPLAINED OF THROBBING PAIN IN BOTH ARMS OF 3/10. PER PATIENT REQUEST, TYLENOL 650MG PO Q4HRS PRN WAS ADMINISTERED AT THIS TIME. WILL CONTINUE TO MONITOR
[2020-03-30] MEDS: MULTIVITAMINS,THERAGRAN 1 UDTAB TABLET PO SCH (10:08)
[2020-03-30] MEDS: APIXABAN 5 MG TABLET PO SCH ×2 (10:13→16:21)
--- NOTE | 2020-03-30 13:38 | NUR ---
Facility Contact: SW called [facility] and spoke to Maddie who stated that [facility] ([phone], ) is the facility that is willing to accept the pt and that the SW can speak to Aura. DIVINE stated that she will call and work with this facility.
--- NOTE | 2020-03-30 14:14 | NUR ---
Facility Contact: SW called [facility] ([phone], ) and left a voicemail that stated that the SW would like to discuss this pts admission to this facility.
--- NOTE | 2020-03-30 14:30 | NUR ---
PATIENT COMPLAINING OF VAGINAL PAIN. DR NI, MADE AWARE. DR NI ASSESSED PATIENT WITH NURSE. ORDERS RECEIVED. WILL ADMINISTER ORDERS ORDERED AND CONTINUE TO MONITOR.
[2020-03-30 16:00] VITALS: BP 153/115
[2020-03-30] MEDS: PHENAZOPYRIDINE HCL 200 MG TABLET PO PRN (16:17)
--- NOTE | 2020-03-30 16:17 | NUR ---
PT C/O OF THROBBING URINARY PAIN OF 3/10. PYRIDIUM 100MG PO TID PRN ADMINISTERED PER ORDER. WILL CONTINUE TO MONITOR
[2020-03-30 16:32] VITALS: BP 162/95
--- NOTE | 2020-03-30 16:32 | NUR ---
PT C/O OF LEFT/RIGHT HAND ACHING AND GUARDING PAIN OF 7/10. VS TAKEN, BP 162/95 HR 86, RR 18, T 97.9 SPO2 97%. NORCO 5-325MG PO Q6HR PRN ADMINISTERED AT THIS TIME. WILL CONTINUE TO MONITOR
--- NOTE | 2020-03-30 19:04 | NUR ---
GPS RN CLOSING NOTES PT SITTING AT BEDSIDE AT THIS TIME. PT REMAINED STABLE THROUGHOUT SHIFT. ALL CARE, NEEDS, TREATMENT AND MEDICATIONS ADMINISTERED ANTICIPATED PER ORDER. PT KEPT CLEAN AND DRY. SAFETY MAINTAIN AT ALL TIMES. BED IN LOWEST LOCKED POSITION, SIDE RAILS UPX2, CALL LIGHT WITHIN REACH. WILL CONTINUE TO MONITOR Q15M, PRN AND PER PROTOCOL FOR SAFETY AND BEHAVIOR Addendum: 03/30/20 at 1909 by LEON BUNN RN GPS RN CLOSING NOTES PT SITTING AT BEDSIDE AT THIS TIME. PT REMAINED STABLE THROUGHOUT SHIFT. ALL CARE, NEEDS, TREATMENT AND MEDICATIONS ADMINISTERED ANTICIPATED PER ORDER. PT KEPT CLEAN AND DRY. SAFETY MAINTAIN AT ALL TIMES. BED IN LOWEST LOCKED POSITION, SIDE RAILS UPX2, CALL LIGHT WITHIN REACH. WILL ENDORSE TO DIRECTOR OF ADULT EPILEPSY NURSE FOR ANDREW
[2020-03-30 19:38] VITALS: BP 149/93
[2020-03-30] MEDS: hydrOXYzine PAMOATE 25 MG CAPSULE PO PRN (20:54)
[2020-03-30] MEDS: CEPHALEXIN MONOHYDRATE 500 MG CAPSULE PO SCH (20:55)
[2020-03-30] MEDS: ATORVASTATIN 10 MG TABLET PO SCH (21:42)
[2020-03-30] MEDS: QUETIAPINE FUMARATE 100 MG TABLET PO SCH (21:42)
[2020-03-30] MEDS: SENNOSIDES 8.6 MG TABLET PO SCH (21:42)
[2020-03-30] MEDS: ZOLPIDEM TARTRATE 5 MG TABLET PO PRN (22:33)
--- NOTE | 2020-03-31 06:02 | NUR ---
GPS RN CLOSING NOTES PT AWAKE AND LAYING ON BED. ALL CARE, NEEDS, TREATMENT AND MEDICATIONS ADMINISTERED ANTICIPATED PER ORDER. PT HAD PRN MEDS VISTARIL 25MG, 1 TAB PO AND AMBIEN 5MG 1 TAB PO THIS SHIFT. PT KEPT CLEAN AND DRY. SAFETY PRECAUTION TAKEN. BED IN LOWEST LOCKED POSITION, SIDE RAILS UPX2, CALL LIGHT WITHIN REACH. WILL CONTINUE TO MONITOR [id number] AND Q1HR PER GPS PROTOCOL FOR SAFETY, MOOD AND BEHAVIOR
[2020-03-31] MEDS: LEVOTHYROXINE SODIUM 25 MCG TABLET PO SCH (07:12)
[2020-03-31] MEDS: PANTOPRAZOLE 40 MG TABLET.DR PO SCH (07:48)
[2020-03-31 08:00] VITALS: BP 160/87
[2020-03-31] MEDS: POTASSIUM CHLORIDE 20 MEQ POWDER PACKET PO SCH (08:26)
[2020-03-31] MEDS: GABAPENTIN 100 MG CAPSULE PO SCH ×3 (08:26→17:38)
[2020-03-31] MEDS: DULOXETINE HCL 30 MG CAPSULE.DR PO SCH (08:26)
[2020-03-31] MEDS: MULTIVITAMINS,THERAGRAN 1 UDTAB TABLET PO SCH (08:26)
[2020-03-31] MEDS: DOCUSATE SODIUM 100 MG CAPSULE PO SCH ×2 (08:26→17:38)
[2020-03-31] MEDS: CEPHALEXIN MONOHYDRATE 500 MG CAPSULE PO SCH ×2 (08:27→20:33)
[2020-03-31] MEDS: CHOLECALCIFEROL 1,000 UNIT TABLET (VIT D3) PO SCH (08:27)
[2020-03-31] MEDS: OXYBUTYNIN CHLORIDE 5 MG TABLET PO SCH ×2 (08:27→17:39)
[2020-03-31] MEDS: VALSARTAN 40 MG TABLET PO SCH (08:27)
[2020-03-31] MEDS: DILTIAZEM HCL CD 120 MG PO SCH (08:28)
[2020-03-31] MEDS: ATENOLOL 50 MG TABLET PO SCH ×2 (08:28→17:38)
[2020-03-31] MEDS: APIXABAN 5 MG TABLET PO SCH ×2 (08:29→17:39)
[2020-03-31] MEDS: PHENAZOPYRIDINE HCL 200 MG TABLET PO PRN (13:09)
[2020-03-31] MEDS: HYDROCODONE/APAP 5/325MG 1 EACH TABLET PO PRN (13:10)
--- NOTE | 2020-03-31 13:10 | NUR ---
RN NOTE: PAIN PT C/O 8/10 LEFT SHOULDER PAIN AND GENERALIZED PELVIC PAIN. MEDICATED WITH NORCO AND PYRIDIUM PO PRN
--- NOTE | 2020-03-31 13:19 | NUR ---
SNF Referral: DIVINE faxed a referral to [facility] with attn to Adali to the fax number: [phone].
[2020-03-31 16:00] VITALS: BP 161/83
[2020-03-31 20:06] VITALS: BP 146/66
[2020-03-31] MEDS: SENNOSIDES 8.6 MG TABLET PO SCH (21:22)
--- NOTE | 2020-03-31 21:22 | NUR ---
GPS RN NOTES: REFUSED SENOKOT PT REFUSED SENOKOT 17.2 MG PO ORDERED DUE. PT STATED, "DION ALREADY USED THE RESTROOM TODAY. I DON'T WANT TO KEEP GOING AT NIGHT." EXPLAIN RISKS AND BENEFITS. PT REFUSED X 3. CONTINUE TO MONITOR.
[2020-03-31] MEDS: QUETIAPINE FUMARATE 100 MG TABLET PO SCH (21:30)
[2020-03-31] MEDS: ATORVASTATIN 10 MG TABLET PO SCH (21:30)
[2020-03-31 22:31] VITALS: BP 134/74
[2020-03-31] MEDS: ZOLPIDEM TARTRATE 5 MG TABLET PO PRN (22:33)
--- NOTE | 2020-03-31 22:39 | NUR ---
GPS RN NOTES: INSOMNIA PT C/O UNABLE TO SLEEP. PT REQUESTED AMBIEN. CHECKED VITALS WNL. NO RESP DISTRESS. BREATHING EVEN AND UNLABORED. NO PAIN AT THIS TIME. OFFERED AMBIEN 5 MG PO PRN ORDERED. PT AGREED AND TOLERATED MEDICATION WELL. CONTINUE TO MONITOR
[2020-04-01 04:15] VITALS: BP 126/70
[2020-04-01] MEDS: PHENAZOPYRIDINE HCL 200 MG TABLET PO PRN (04:21)
--- NOTE | 2020-04-01 04:24 | NUR ---
GPS RN NOTES: URINARY PAIN UPON DOING ROUNDS, PT C/O OF URINARY PAIN. VITALS CHECKED WNL. NO SOB. NO RESP DISTRESS. BREATHING EVEN AND UNLABORED. OFFERED PYRIDIUM PRN ORDERED. PT AGREED AND TOLERATED MEDICATION WELL. CONTINUE TO MONITOR.
[2020-04-01] MEDS: LEVOTHYROXINE SODIUM 25 MCG TABLET PO SCH (06:15)
[2020-04-01 08:00] VITALS: BP 149/83
[2020-04-01] MEDS: OXYBUTYNIN CHLORIDE 5 MG TABLET PO SCH ×2 (08:16→18:01)
[2020-04-01] MEDS: ATENOLOL 50 MG TABLET PO SCH ×2 (08:16→18:00)
[2020-04-01] MEDS: POTASSIUM CHLORIDE 20 MEQ POWDER PACKET PO SCH (08:16)
[2020-04-01] MEDS: DOCUSATE SODIUM 100 MG CAPSULE PO SCH ×2 (08:16→17:59)
[2020-04-01] MEDS: DULOXETINE HCL 30 MG CAPSULE.DR PO SCH (08:16)
[2020-04-01] MEDS: CEPHALEXIN MONOHYDRATE 500 MG CAPSULE PO SCH ×2 (08:16→21:20)
[2020-04-01] MEDS: PANTOPRAZOLE 40 MG TABLET.DR PO SCH (08:16)
[2020-04-01] MEDS: GABAPENTIN 100 MG CAPSULE PO SCH ×4 (08:17→18:01)
[2020-04-01] MEDS: DILTIAZEM HCL CD 120 MG PO SCH (08:17)
[2020-04-01] MEDS: MULTIVITAMINS,THERAGRAN 1 UDTAB TABLET PO SCH (08:17)
[2020-04-01] MEDS: CHOLECALCIFEROL 1,000 UNIT TABLET (VIT D3) PO SCH (08:17)
[2020-04-01] MEDS: VALSARTAN 40 MG TABLET PO SCH (08:18)
[2020-04-01] MEDS: APIXABAN 5 MG TABLET PO SCH ×2 (08:18→18:02)
--- NOTE | 2020-04-01 14:38 | NUR ---
SNF Referral: DIVINE faxed a referral to the following two facilities: [facility] with attn to THOMAS and Crispin to the fax number: [phone] [facility] to the fax number: [phone].
--- NOTE | 2020-04-01 14:50 | NUR ---
NURSE MARCIN ENDORSED PT. TO ME. ALERT AND ORIENTED,VERY NEEDY.MED COMPLIANT.
[2020-04-01 16:00] VITALS: BP 149/89
[2020-04-01] MEDS: HYDROCODONE/APAP 5/325MG 1 EACH TABLET PO PRN (18:14)
[2020-04-01 19:57] VITALS: BP 126/62
[2020-04-01] MEDS: ATORVASTATIN 10 MG TABLET PO SCH (21:19)
[2020-04-01] MEDS: QUETIAPINE FUMARATE 100 MG TABLET PO SCH (21:20)
[2020-04-01] MEDS: SENNOSIDES 8.6 MG TABLET PO SCH (21:20)
[2020-04-01] MEDS: ZOLPIDEM TARTRATE 5 MG TABLET PO PRN (22:54)
--- NOTE | 2020-04-01 22:54 | NUR ---
GPS-RN NOTE: INSOMNIA PATIENT C/O INABILITY TO SLEEP. ADMINISTERED AMBIEN 5MG PO ORDERED. WILL CONTINUE TO MONITOR.
[2020-04-02 08:00] VITALS: BP 135/81
[2020-04-02] MEDS: CEPHALEXIN MONOHYDRATE 500 MG CAPSULE PO SCH ×2 (08:00→20:08)
[2020-04-02] MEDS: GABAPENTIN 100 MG CAPSULE PO SCH ×3 (08:01→16:58)
[2020-04-02] MEDS: CHOLECALCIFEROL 1,000 UNIT TABLET (VIT D3) PO SCH (08:01)
[2020-04-02] MEDS: MULTIVITAMINS,THERAGRAN 1 UDTAB TABLET PO SCH (08:01)
[2020-04-02] MEDS: LEVOTHYROXINE SODIUM 25 MCG TABLET PO SCH (08:02)
[2020-04-02] MEDS: POTASSIUM CHLORIDE 20 MEQ POWDER PACKET PO SCH (08:02)
[2020-04-02] MEDS: VALSARTAN 40 MG TABLET PO SCH (08:02)
[2020-04-02] MEDS: DULOXETINE HCL 30 MG CAPSULE.DR PO SCH (08:02)
[2020-04-02] MEDS: DILTIAZEM HCL CD 120 MG PO SCH (08:02)
[2020-04-02] MEDS: PANTOPRAZOLE 40 MG TABLET.DR PO SCH (08:03)
[2020-04-02] MEDS: APIXABAN 5 MG TABLET PO SCH ×2 (08:03→16:59)
[2020-04-02] MEDS: DOCUSATE SODIUM 100 MG CAPSULE PO SCH ×2 (08:03→16:58)
[2020-04-02] MEDS: ATENOLOL 50 MG TABLET PO SCH ×2 (08:03→16:59)
[2020-04-02] MEDS: OXYBUTYNIN CHLORIDE 5 MG TABLET PO SCH ×2 (08:04→16:59)
[2020-04-02] MEDS: HYDROCODONE/APAP 5/325MG 1 EACH TABLET PO PRN (08:39)
--- NOTE | 2020-04-02 10:44 | NUR ---
SNF REFERRAL FOLLOW UPS: DIVINE contacted [facility] Address: [address] [place], [place] and spoke with Adali pharmacy benefits coordinator who stated pts referral was declined. DIVINE contacted [facility] Address: [address] [place] and spoke with Crispin, regional company hazmat tanker drivercenter medical and lab director who stated the facility is currently no accepted pts. DIVINE also contacted [facility] Address: [address] [place] [address] and spoke with Nissa pharmacy benefits coordinator who stated pt has been accepted, SW informed her pt will be discharged on Monday04/04/20.
[2020-04-02 16:00] VITALS: BP 146/84
[2020-04-02 19:36] VITALS: BP 149/77
[2020-04-02] MEDS: ATORVASTATIN 10 MG TABLET PO SCH (21:37)
[2020-04-02] MEDS: QUETIAPINE FUMARATE 100 MG TABLET PO SCH (21:37)
[2020-04-02] MEDS: SENNOSIDES 8.6 MG TABLET PO SCH (21:38)
[2020-04-02] MEDS: ZOLPIDEM TARTRATE 5 MG TABLET PO PRN (22:16)
--- NOTE | 2020-04-02 22:18 | NUR ---
GPS RN NOTE: INSOMNIA PT COMPLAINED OF HAVING INSOMNIA STATED "I CANT SLEEP WITHOUT TAKING AN AMBIEN, I NEED AN AMBIEN NOW". ADMINISTERED PRN AMBIEN, WILL REASSESS AND CONTINUE TO MONITOR Q15MIN FOR SAFETY AND BEHAVIOR.
--- NOTE | 2020-04-03 01:18 | NUR ---
GPS RN NOTE: NON ADMIN REASON DID NOT ADMINISTER 2[address], PT STATED "IM NOT CONSTIPATED, I KEEP USING THE BATHROOM I DON'T WANT THAT". WILL CONTINUE TO MONITOR Q15 MIN FOR SAFETY AND BEHAVIOR.
[2020-04-03] MEDS: ACETAMINOPHEN 325 MG TABLET PO PRN ×2 (05:38→19:42)
--- NOTE | 2020-04-03 05:41 | NUR ---
GPS RN NOTE: PAIN PT STATED "I AM HAVING LEG PAIN AND BURNING PAIN WHEN I PEE, I NEED SOMETHING WHAT CAN I TAKE" ADMINISTERED PRN TYLENOL @ 0538, REEDUCATED PT ABOUT THE UTI SHE HAS AND TAKING THE FULL COURSE ANTIBIOTICS WILL HELP WITH THE BURNING SENSATION WHEN URINATING. WILL REASSESS AND CONTINUE TO MONITOR Q15MIN FOR SAFETY AND BEHAVIOR.
[2020-04-03] MEDS: LEVOTHYROXINE SODIUM 25 MCG TABLET PO SCH (07:00)
[2020-04-03 08:00] VITALS: BP 148/99
[2020-04-03] MEDS: DOCUSATE SODIUM 100 MG CAPSULE PO SCH ×2 (08:57→16:32)
[2020-04-03] MEDS: CHOLECALCIFEROL 1,000 UNIT TABLET (VIT D3) PO SCH (08:59)
[2020-04-03] MEDS: PANTOPRAZOLE 40 MG TABLET.DR PO SCH (09:00)
[2020-04-03] MEDS: DULOXETINE HCL 30 MG CAPSULE.DR PO SCH ×3 (09:00→10:29)
[2020-04-03] MEDS: OXYBUTYNIN CHLORIDE 5 MG TABLET PO SCH ×2 (09:00→16:32)
[2020-04-03] MEDS: VALSARTAN 40 MG TABLET PO SCH (09:00)
[2020-04-03] MEDS: DILTIAZEM HCL CD 120 MG PO SCH ×2 (09:00→09:07)
[2020-04-03] MEDS: POTASSIUM CHLORIDE 20 MEQ POWDER PACKET PO SCH (09:01)
[2020-04-03] MEDS: APIXABAN 5 MG TABLET PO SCH ×2 (09:01→16:39)
[2020-04-03] MEDS: MULTIVITAMINS,THERAGRAN 1 UDTAB TABLET PO SCH (09:01)
[2020-04-03] MEDS: CEPHALEXIN MONOHYDRATE 500 MG CAPSULE PO SCH ×2 (09:01→21:00)
[2020-04-03] MEDS: GABAPENTIN 100 MG CAPSULE PO SCH ×4 (09:03→16:34)
[2020-04-03] MEDS: ATENOLOL 50 MG TABLET PO SCH ×2 (09:04→16:39)
[2020-04-03] MEDS: HYDROCODONE/APAP 5/325MG 1 EACH TABLET PO PRN ×2 (09:10→17:15)
--- NOTE | 2020-04-03 09:10 | NUR ---
rn notes administered narco 5/325 mg po prn for generalized pain. v/s taken bp 148/99, p-72, patient selective with scheduled medication. continued monitoring.
--- NOTE | 2020-04-03 10:31 | NUR ---
rn notes administered Symbolta 60 mg po at this time, after MD Belcher spoke with the patient.
--- NOTE | 2020-04-03 12:22 | NUR ---
RN NOTES PATIENT REFUSED 1300 NEURONTIN 200 MG PO . PATIENT STATE TO MUCH MEDICATION "I AM CHOKING".
[2020-04-03 16:00] VITALS: BP 144/88
--- NOTE | 2020-04-03 17:15 | NUR ---
rn notes administered narco 5/325 mg po prn for generalized pain 02/27 per patient request, v/s taken bp 144/88, p-91, r-20. continued monitoring.
--- NOTE | 2020-04-03 19:51 | NUR ---
RN NOTES: COMPLAINED OF MILD PAIN, REQUESTING FOR HER NORCO EXPLAINED TO HER THIS IS NOT YET YOUR TIME FOR NORCO, OFFERED TYLENOL AND SHE AGREED TO TAKE IT BP-115/72 NM-66.
[2020-04-03 20:00] VITALS: BP 115/72
[2020-04-03 20:23] VITALS: BP 115/72
[2020-04-03] MEDS: ATORVASTATIN 10 MG TABLET PO SCH (21:00)
[2020-04-03] MEDS: QUETIAPINE FUMARATE 100 MG TABLET PO SCH (21:00)
[2020-04-03] MEDS: SENNOSIDES 8.6 MG TABLET PO SCH (21:00)
[2020-04-03] MEDS: ZOLPIDEM TARTRATE 5 MG TABLET PO PRN (21:14)
--- NOTE | 2020-04-03 21:14 | NUR ---
RN NOTES: -PREPARED HER EVENING MEDIATION KEFLEX,SEROQUEL, SENOKOT AND LIPITOR, EXPLAINED TO HER THAT SHE NEEDS TO TAKE HER MEDICATION, EXPLAINED ACTION ONE BY ONE, SUDDENLY SHE WAS UPSET SHE WANTS HER AMBIEN, RN EXPLAINED TO HER WE CANNOT GIVE THEM TOGETHER, BECAUSE IT WILL MAKE HER BP GO DOWN RIGHT NOW HER BP-115/72, SHE STARTED TO SHOUT AND SAY BAD WORDS TO THE NURSE. SHE SAID "I DONT WANT TO TAKE THAT BUNCH OF MEDICATION I JUST WANT MY AMBIEN, I DONT WANT SEROQUEL". -RN WAS WITNESSED BY THE CHARGE NURSE DURING HER TIME OF AGITATION, SEROQUEL ALONG WITH HER OTHER MEDICATION NOT GIVEN, SHE REFUSED. -SHE ONLY TOOK THE AMBIEN PRN FOR SLEEP. -AFTER SHE GOT THE MEDICATION SHE APOLOGIZE AND SAY SORRY
--- NOTE | 2020-04-03 21:31 | NUR ---
RN NOTES: RETURNED KEFLEX,LIPITOR AND SENOKOT IN THE PYXIS, UNABLE TO RETURN BACK SEROQUEL, PATIENT REFUSED TO TAKE BUT IT WAS ALREADY OPEN.DISCARD IN PILL WASTER.
--- NOTE | 2020-04-03 22:37 | NUR ---
RN NOTES: AROUND 2200 AFTER SHE HAD HER SLEEPING PILL, SHE PROCEED TO BED AND SLEEP.
--- NOTE | 2020-04-04 02:41 | NUR ---
VALENTINA NOTES: AWAKE AMBULATE GOING TO THE BATHROOM USING HER FWW, SHE WENT BACK TO BED. Addendum: 04/04/20 at 0301 by MCKENZIE NIETO RN ADDED NOTES: ABLE TO GO BACK TO SLEEP, FALL PRECAUTION OBSERVED.
[2020-04-04] MEDS: LEVOTHYROXINE SODIUM 25 MCG TABLET PO SCH (06:19)
--- NOTE | 2020-04-04 06:54 | NUR ---
RN NOTES: AWAKE, SHE TOOK HER LEVOTHYROXINE, RIGHT NOW COMPLAINING OF BURNING SENSATION UPON URINATION, EXPLAINED TO HER THAT SHE HAS UTI AND SHE REFUSED TO TAKE HER ANTIBIOTIC, YESTERDAY AND THIS MORNING, SHE NEEDS TO COMPLY IN HER MEDICATION.ENCOURAGE TO TAKE MORE WATER TOLERATED AND GIVEN CRANBERRY JUICE,FOR DISCHARGE TODAY IN [facility]IA [facility] AT 1100.ENDORSED FOR CONTINUITY OF CARE.
[2020-04-04 08:00] VITALS: BP 151/92
[2020-04-04] MEDS: POTASSIUM CHLORIDE 20 MEQ POWDER PACKET PO SCH (08:07)
[2020-04-04] MEDS: CHOLECALCIFEROL 1,000 UNIT TABLET (VIT D3) PO SCH (08:07)
[2020-04-04] MEDS: VALSARTAN 40 MG TABLET PO SCH (08:07)
[2020-04-04] MEDS: OXYBUTYNIN CHLORIDE 5 MG TABLET PO SCH (08:07)
[2020-04-04] MEDS: CEPHALEXIN MONOHYDRATE 500 MG CAPSULE PO SCH (08:07)
[2020-04-04] MEDS: PANTOPRAZOLE 40 MG TABLET.DR PO SCH (08:07)
[2020-04-04] MEDS: DOCUSATE SODIUM 100 MG CAPSULE PO SCH (08:08)
[2020-04-04] MEDS: GABAPENTIN 100 MG CAPSULE PO SCH (08:08)
[2020-04-04] MEDS: APIXABAN 5 MG TABLET PO SCH (08:09)
[2020-04-04] MEDS: ATENOLOL 50 MG TABLET PO SCH (08:11)
[2020-04-04] MEDS: DULOXETINE HCL 30 MG CAPSULE.DR PO SCH (08:11)
[2020-04-04] MEDS: MULTIVITAMINS,THERAGRAN 1 UDTAB TABLET PO SCH (08:19)
[2020-04-04 08:20] VITALS: BP 151/92
[2020-04-04] MEDS: DILTIAZEM HCL CD 120 MG PO SCH (08:20)
[2020-04-04] MEDS: HYDROCODONE/APAP 5/325MG 1 EACH TABLET PO PRN (08:30)
--- NOTE | 2020-04-04 08:49 | NUR ---
Dr. Belcher gave an order to D/C hold and D[facility]C to [facility] and to follow up with the psychiatrist Dr. Belcher at [address] [facility] [address], [place] [address] with the tel# [phone] and to follow with the line maintainer section Dr. Israel at [address] [facility] [address] [address] with the tel# [phone]. Psychiatrist ordered to continue same meds including prn. Called the facility and spoke to Briseyda the asphalt paving supervisor and said that they are accepting the pt. today. Per pt. she doesn't have anybody to notify for the discharge.
--- NOTE | 2020-04-04 11:30 | NUR ---
GPS/RN PT DISCHARGED TO [facility]. VSS NO ACUTE DISTRESS NO SI OR HI AT THE TIME OF DISCHARGE. REPORT GIVEN TO LION MONTGOMERY AT FACILITY. EXIT CARE AND PRESCRIPTIONS GIVEN ANDUNDERSTOOD. PROPERTY RETURNED. PT REFUSED TO SIGN D/C PAPERWORK AND TO LET RN TO TAKE THE PICTURES. LEFT VIA AMBULANCE.
== END 2020-04-04 11:30 | DRG 885 ==
LOC: ER 15:46 → GPS 19:50
PROVIDERS: ADMIT Psychiatry & Neurology Psychiatry; ATTEND Registered Nurse
DX: F33.3 Major depressive disorder, recurrent, severe with psychotic symptoms (principal); I11.0 Hypertensive heart disease with heart failure; N39.0 Urinary tract infection, site not specified; F29 Unspecified psychosis not due to a substance or known physiological condition; E78.5 Hyperlipidemia, unspecified; E11.9 Type 2 diabetes mellitus without complications; I50.9 Heart failure, unspecified; I25.10 Atherosclerotic heart disease of native coronary artery without angina pectoris; J44.9 Chronic obstructive pulmonary disease, unspecified; K21.9 Gastro-esophageal reflux disease without esophagitis; Z79.01 Long term (current) use of anticoagulants; Z87.440 Personal history of urinary (tract) infections; Z91.81 History of falling; Z79.899 Other long term (current) drug therapy; F41.9 Anxiety disorder, unspecified; F11.10 Opioid abuse, uncomplicated; Z81.8 Family history of other mental and behavioral disorders; Z88.0 Allergy status to penicillin; K64.9 Unspecified hemorrhoids
CPT/HCPCS: 36415; 80048-TC; 80053-TC; 80061-TC; 80076-TC; 80305; 81000-TC; 85025-TC; 87081-TC; 87086-TC; 97116-TC; 97530-TC; G0480; Q0177

== ENCOUNTER 2020-04-07 14:57 | Emergency (ER) | payer MEDICARE, OTHER ==
[~2020-04-07] VITALS: Ht 162.6 cm; Wt 77.1 kg
[~2020-04-07 14:57] MED LIST: ACET-868 PO; APIX5TAB4 PO; ATEN50TA PO; ATOR10TA PO; BISA10SU61 RC; CHOL200025 PO; CRAN425C6 PO; DILT120T8 PO; DOCU-141 PO; HYDR-4384 PO; LEVO25TA7 PO; LOPE-195 PO; MULT-439 PO; ONDA4TAB5 PO; PANT40TA2 PO; POLY17PO4 PO; POTA20TA83 PO; SENN-175 PO; VALS40TA12 PO; ZOLP5TAB8 PO; [UNRECOGNIZED DRUG - CODE] PO
--- NOTE | 2020-04-07 14:57 | NUR ---
PT BIB [facility], AGGRESSIVE BEHAVIOR TOWARDS STAFF. PT IS AAOX3, NOT IN RESPIRATORY DISTRESS, V/S STABLE, KEPT RESTED AND COMFORTABLE. WILL CONTINUE TO MONITOR.
--- NOTE | 2020-04-07 15:13 | NUR ---
PT SEEN AND EXAMINED BY .
--- NOTE | 2020-04-07 15:30 | NUR ---
URINAL GIVEN BUT UNABLE TO PROVIDE URINE SPECIMEN THIS TIME.
--- NOTE | 2020-04-07 15:34 | NUR ---
ER PHLEB AT BEDSIDE FOR BLOOD DRAW.
[2020-04-07 15:41] LABS: BASOPHILS % (AUTO) 0.7 % (0.0-2.0); EOSINOPHILS % (AUTO) 1.6 % (0.0-6.0); HEMATOCRIT 44 % (33-45); HEMOGLOBIN 14.5 g/dL (11.5-14.8); LYMPHOCYTES # (AUTO) 1.5 /CMM (0.8-4.8); LYMPHOCYTES % (AUTO) 21.2 % (20.0-44.0); MEAN CORPUSCULAR HGB CONC 33 g/dl (31.0-36.0); MEAN CORPUSCULAR VOLUME 84 fL (82-100); MONOCYTES # (AUTO) 0.6 /CMM (0.1-1.30); MONOCYTES % (AUTO) 8.1 % (2.0-12.0); NEUTROPHILS # (AUTO) 4.8 /CMM (1.8-8.9); NEUTROPHILS % (AUTO) 68.4 % (43.0-81.0); PLATELET COUNT (AUTO) 177 /CMM (150-450); RED BLOOD CELL COUNT(AUTO) 5.26 MIL/uL (4.0-5.2)
[2020-04-07 15:51] LABS: CALCIUM, SERUM 9.5 mg/dL (8.5-10.1); CARBON DIOXIDE 24 mmol/L (21-32); CHLORIDE 104 mmol/L (98-107); CREATININE 0.9 mg/dL (0.6-1.3); GLUCOSE 98 mg/dL (74-106); POTASSIUM 4.4 mmol/L (3.5-5.1); SODIUM SERUM 137 mmol/L (136-145); UREA NITROGEN, BLOOD 23 mg/dL (7-18)
[2020-04-07 16:00] VITALS: BP 123/68
[2020-04-07 16:04] LABS: ALANINE AMINOTRANSFERASE 16 U/L (12-78); ALBUMIN 3.9 g/dL (3.4-5.0); ALCOHOL, BLOOD 13 mg/dL (0-0); ALKALINE PHOSPHATASE 67 U/L (46-116); ASPARTATE AMINOTRANSFERASE 23 U/L (15-37); BILIRUBIN,DIRECT 0.1 mg/dL (0.0-0.2); BILIRUBIN,TOTAL 0.6 mg/dL (0.2-1.0); SALICYLATE < 2.8 mg/dL (2.8-20.0); TOTAL PROTEIN, SERUM 7.7 g/dL (6.4-8.2)
[2020-04-07 16:05] LABS: ACETAMINOPHEN < 2 ug/ml (10-30)
[2020-04-07 16:24] LABS: APPEARANCE,URINE Slightly Cloudy (CLEAR); BILIRUBIN,URINE Negative (NEGATIVE); BLOOD, URINE Trace-lysed Ery/uL (NEGATIVE); COLOR,URINE Yellow (YELLOW); KETONES,URINE Negative (NEGATIVE); LEUKOCYTE ESTERASE ,URINE Negative (NEGATIVE); NITRITE, URINE Negative (NEGATIVE); PH,URINE 6.5 (5.0-8.0); PROTEIN,URINE Negative (NEGATIVE); UGLUCOSE Negative (NEGATIVE); UROBILINOGEN,URINE 0.2 EU/dL (0.2)
[2020-04-07 16:37] LABS: BACTERIA,URINE None seen /HPF (None Seen); SQUAMOUS EPITHELIAL CELL,UR Few /HPF (None Seen); WBC,URINE 0-2 /HPF (0-3)
[2020-04-07] MEDS ORDERED: GABA-532 PO (17:02)
[2020-04-07] MEDS ORDERED: MULT-439 PO (17:02)
[2020-04-07] MEDS ORDERED: DULO60CA45 PO (17:02)
[2020-04-07] MEDS ORDERED: QUET200T PO (17:02)
[2020-04-07] MEDS ORDERED: MAG355OR18 PO (17:02)
[2020-04-07] MEDS ORDERED: OXYB5TAB16 PO (17:02)
--- NOTE | 2020-04-07 17:37 | NUR ---
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
--- NOTE | 2020-04-07 18:36 | NUR ---
ADIN MONTGOMERY CRISIS INFORMATION RESOURCE CONSULTANT AT BEDSIDE FOR EVAL.
--- NOTE | 2020-04-07 19:07 | NUR ---
REPORT GIVEN TO VALENTINA SOLIS FOR ANDREW.
--- NOTE | 2020-04-07 19:43 | NUR ---
COVID SAMPLE SWAB COLLECTED AND SENT TO THE LAB.
--- NOTE | 2020-04-07 19:45 | NUR ---
TRANSFER TO [facility] GPS ROOM 145-A
--- NOTE | 2020-04-07 19:52 | NUR ---
[facility] BLS TO [facility] ETA 2044 Addendum: 04/07/20 at 2025 by ETHAN VERONICA#[id number]
--- NOTE | 2020-04-07 20:33 | NUR ---
REPORT GIVEN TO XU MONTGOMERY FOR [facility].
--- NOTE | 2020-04-07 20:43 | NUR ---
REPORT GIVEN TO TRANSPORT TEAM FOR [facility]. AND TRANSFERRING RESPONSIBILITIES.
== END 2020-04-07 21:02 ==
LOC: ER 15:10
DX: R46.89 Other symptoms and signs involving appearance and behavior (principal); R45.1 Restlessness and agitation; I10 Essential (primary) hypertension; K21.9 Gastro-esophageal reflux disease without esophagitis; M62.81 Muscle weakness (generalized); Z88.8 Allergy status to other drugs, medicaments and biological substances; Z88.0 Allergy status to penicillin; Z91.013 Allergy to seafood; J44.9 Chronic obstructive pulmonary disease, unspecified; E03.9 Hypothyroidism, unspecified; Z79.890 Hormone replacement therapy; Z79.01 Long term (current) use of anticoagulants; Z79.899 Other long term (current) drug therapy; Z20.828 Contact with and (suspected) exposure to other viral communicable diseases
CPT/HCPCS: 36415; 80048; 80076; 80305; 80307; 80329; 81001; 85025; 87081; 87426; 99285; G0480; 81000-TC; C9803-CS